=== PATIENT | female | born 1950 | race Hispanic/Latino ===

== ENCOUNTER 2019-03-01 12:24 | Outpatient (CLI) | payer MEDICARE, OTHER ==
[2019-03-01] MEDS ORDERED: DEPO-Medrol INTRA-ARTI ONE (12:46)
[2019-03-01] MEDS ORDERED: XYLOCAINE 2% INFILTRATI ONE ×2 (12:47→13:48)
[2019-03-01] MEDS ORDERED: XYLOCAINE 1% 20 mL ONE (13:11)
--- NOTE | 2019-03-01 14:34 | Fluoroscopy Report ---
ARTHROGRAM OF THE RIGHT HIP HISTORY: M16.11) Unilateral primary osteoarthritis, right hip. COMPARISON: None. CONSENT: The risks,benefits, and alternatives of theprocedure were discussed with the patient who agr eed toproceed. TECHNIQUE: The patient was placed supine on the fluoroscopy table. The right hip joint was identifie d and overlying skin demarcated under fluoroscopic guidance. Area was prepped and draped in the usual sterile fashion. Time-out was performed. Skin and subcutaneous tissues were anesthetized with lid ocaine. A 22-gauge spinal needle was placed into the joint space under fluoroscopic guidance. A small amount of Omnipaque 300 contrast agent was injected to ensure intra-articular location. A solution containin g 3 cc of 2% lidocaine and 1 cc of 40 mg of Depo-Medrol was injected into the right hip joint per the ordering physician's request. The patient tolerated the procedure without difficulty and left radiol ogy in stable condition. FLUOROSCOPIC TIME: 1.1 minutes # IMAGES: 4 IMPRESSION: Technically successful fluoroscopy-guided right hip injection as described. Signer Name: Bret Echeverria Jr, MD Signed: 03/01/2019 2:30 PM Workstation Name: [id number]
== END 2019-03-01 12:25 | disposition home or self-care (01) ==
LOC: FLUORO 12:24
PROVIDERS: ATTEND Orthopaedic Surgery
DX: M16.11 Unilateral primary osteoarthritis, right hip (principal)
CPT/HCPCS: 27093; 73525; J1030; Q9965